=== PATIENT | male | born 1995 | race Caucasian/White ===

== ENCOUNTER 2017-08-31 20:37 | Emergency (ER) | payer OTHER, BC, SELFPAY ==
[2017-08-31 20:37] VITALS: BP 154/88; PULSE 113; RESP 14; TEMP 36.1; BMI 40.8
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
[2017-08-31 21:52] VITALS: PULSE 71; RESP 24
--- NOTE | 2017-08-31 21:52 | ED.RN ---
THIS NURSE REVIEWED D/C INSTRUCTIONS WITH PT. PT VERBALIZED UNDERSTANDING OF INSTRUCTIONS. PT DENIES FURTHER NEEDS OR QUESTIONS AT THIS TIME. PT AMBULATES FROM THE DEPARTMENT ON HIS OWN WITHOUT ASSISTANCE FROM STAFF
== END 2017-08-31 21:53 | disposition home or self-care (01) ==
PROVIDERS: Emergency Provider Emergency Medicine
DX: S06.0X0A Concussion without loss of consciousness, initial encounter (principal); Y04.2XXA Assault by strike against or bumped into by another person, initial encounter; Y93.9 Activity, unspecified; Y92.119 Unspecified place in children's home and orphanage as the place of occurrence of the external cause; Y99.0 Civilian activity done for income or pay
CPT/HCPCS: 99282

== ENCOUNTER 2017-10-07 17:46 | Emergency (ER) | payer OTHER, BC, SELFPAY ==
[2017-10-07 17:47] VITALS: BP 150/83; PULSE 121; RESP 16; TEMP 36.6; O2SAT 96; BMI 39.1
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
[2017-10-07 18:53] VITALS: BP 162/99; PULSE 100; RESP 16; O2SAT 97
== END 2017-10-07 18:55 | disposition home or self-care (01) ==
LOC: ED 18:34
PROVIDERS: Emergency Provider Emergency Medicine
DX: S09.90XA Unspecified injury of head, initial encounter (principal); S50.871A Other superficial bite of right forearm, initial encounter; Y04.1XXA Assault by human bite, initial encounter; Y93.9 Activity, unspecified; Y92.119 Unspecified place in children's home and orphanage as the place of occurrence of the external cause; Y99.0 Civilian activity done for income or pay
CPT/HCPCS: 99283

== ENCOUNTER 2018-03-29 18:18 | Emergency (ER) | payer OTHER, SELFPAY ==
[2018-03-29 18:23] VITALS: BP 159/100; PULSE 95; RESP 18; TEMP 36.7; O2SAT 99; BMI 39.9
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
[2018-03-29 20:15] VITALS: BP 121/79; PULSE 81; RESP 16; O2SAT 100
--- NOTE | 2018-03-29 20:15 | ED.RN ---
THIS NURSE REVIEWED D/C INSTRUCTIONS WITH PT. PT VERBALIZED UNDERSTANDING OF INSTRUCTIONS. PT DENIES FURTHER NEEDS OR QUESTIONS AT THIS TIME. PT AMBULATES FROM ROOM ON OWN WITHOUT ASSISTANCE FROM STAFF
== END 2018-03-29 20:16 | disposition home or self-care (01) ==
PROVIDERS: Emergency Provider Emergency Medicine
DX: S40.011A Contusion of right shoulder, initial encounter (principal); W18.00XA Striking against unspecified object with subsequent fall, initial encounter; Y93.9 Activity, unspecified; Y92.89 Other specified places as the place of occurrence of the external cause; Y99.9 Unspecified external cause status
CPT/HCPCS: 71046; 72040; 73030; 99283

== ENCOUNTER → 2019-02-16 11:04 | Outpatient (CLI) | payer MEDICAID, SELFPAY ==
[2019-02-16 10:55] VITALS: BMI 40.8
--- NOTE | 2019-02-16 11:19 | RAD_ITS ---
STUDY: X-RAY - LEFT ELBOW REASON FOR EXAM: Male, 23 years old. Fall TECHNIQUE: 3 view(s) of the elbow. COMPARISON: None. FINDINGS: There is no evidence of fracture or dislocation. There are no significant degenerative changes. There are no radiodense foreign bodies. RAD/Elbow min 3 Views IMPRESSION: No fracture or dislocation. Electronically Signed: Donavan Lima, at 12:19 EDT Tel , Service support ,
== END ==
PROVIDERS: Visit Provider Physician Assistant Medical
DX: M25.522 Pain in left elbow (principal)
CPT/HCPCS: 73080

== ENCOUNTER → 2019-10-17 09:48 | Outpatient (CLI) | payer MEDICAID, SELFPAY ==
[2019-10-17 09:44] VITALS: BMI 40.8
--- NOTE | 2019-10-17 10:27 | RAD_ITS ---
STUDY: X-RAY - RIGHT HAND REASON FOR EXAM: Male, 24 years old. pain and swelling base of thumb, no trauma TECHNIQUE: 3 view(s) of the hand. COMPARISON: None. FINDINGS: Normal radiocarpal articulation. Normal distal radioulnar joint. Normal visualized carpal bones. Normal carpal articulations Normal carpometacarpal articulation of the thumb. Normal second through fifth carpometacarpal joints. Normal metacarpi. Normal metacarpophalangeal joint of the thumb. Normal interphalangeal joint of the thumb. Normal proximal and distal phalanges of the thumb. Normal metacarpophalangeal joints of the second through fifth fingers. Normal proximal and distal interphalangeal joints of the second through fifth fingers. Normal phalanges of the second through fifth fingers. The soft tissue structures are unremarkable. RAD/Hand Min 3 Views IMPRESSION: Normal x-ray examination of the hand. Electronically Signed: Santos Johnson MD (Bro[place]) at 16:59 EDT , Service support ,
== END ==
PROVIDERS: Referring Provider Orthopaedic Surgery; Visit Provider Orthopaedic Surgery
DX: M79.644 Pain in right finger(s) (principal)
CPT/HCPCS: 73130

== ENCOUNTER 2021-01-15 12:18 | Emergency (ER) | payer OTHER, MEDICAID, SELFPAY ==
[2020-12-21 12:35] VITALS: BMI 40.8
[2021-01-15 12:19] VITALS: BP 150/91; PULSE 91; RESP 16; TEMP 36; O2SAT 96; BMI 47.9
--- NOTE | 2021-01-15 12:40 | CT_ITS ---
STUDY: CT ABDOMEN AND PELVIS WITHOUT CONTRAST REASON FOR EXAM: Male, 25 years old. RLQ pain RADIATION DOSAGE (If Supplied By Facility): CTDIvol = ( 23.97 ) mGy, DLP = ( 1353.40 ) mGycm TECHNIQUE: Transaxial images were obtained from the dome of the diaphragm to the symphysis pubis without oral contrast, and without intravenous contrast. Sagittal and coronal images were reconstructed. Individualized dose optimization techniques were used for this CT. COMPARISON: None. FINDINGS: The visualized lung bases are unremarkable. The visualized portions of the heart are within normal limits. There is decreased attenuation of the liver consistent with steatosis. Normal gallbladder and extrahepatic biliary system. Normal spleen. Normal pancreas. Normal bilateral adrenal glands. 4 mm obstructing stone at the right ureteral pelvic junction with mild hydronephrosis. Normal left kidney. Normal visualized stomach. Normal small intestine. Normal colon. The appendix is visualized and appears normal. Normal abdominal aorta. Normal inferior vena cava. Normal retroperitoneum. Normal urinary bladder. Normal abdominal wall. Normal osseous structures. CT/Abdomen/Pelvis without Cont IMPRESSION: 1. 4 mm obstructing stone at the right ureteropelvic junction with mild hydronephrosis. 2. Fatty infiltration of the liver. Electronically Signed: Dean Donovan MD at 13:48 EDT Tel , Service support ,
--- NOTE | 2021-01-15 12:45 | ED.VIS.GI ---
HPI HPI - GI History of Present Illness Chief Complaint: Abd Pain Abdominal Pain/Flank Pain Onset: Yesterday Narrative Narrative: Presents currently with right lower quadrant pain. Symptoms started yesterday evening 8 PM reported mid abdomen awaking with pain in the right lower quadrant. Nausea and vomiting x2. No hematemesis. Last bowel movement yesterday. No abdominal surgical history. Last meal was yesterday evening. No fevers. No urinary symptoms. History anxiety and depression on medications. States pain is tolerable currently. PFSH PFSH Medical History Anxiety Arthritis Back pain Bloody stool Chest pain Depression Difficulty balancing Fatigue History of knee sprain HTN (hypertension) Limb weakness Seasonal allergies Severe headache Shoulder pain Home Medications bupropion HCl 150 mg PO BID 01/15/21 [History Last Taken Unknown] escitalopram oxalate 10 mg PO DAILY 01/15/21 [History Last Taken Unknown] hydrocodone-acetaminophen 1 tab PO Q6H PRN 3 Days #12 tab 01/15/21 [Rx Last Taken Unknown] ibuprofen 600 mg PO Q6H PRN PRN #20 tab 01/15/21 [Rx Last Taken Unknown] promethazine 25 mg PO Q6H PRN #10 tab 01/15/21 [Rx Last Taken Unknown] Allergy/AdvReac Type Severity Reaction Status Date / Time No Known Allergies Allergy Verified 01/15/21 12:18 Family History Father Colon cancer Diabetes Heart disease Mother Arthritis Son Mosquera mosquera disease Surgical History H/O colonoscopy Hx of endoscopy [place] teeth extracted Social History Smoking Status: Never smoker alcohol intake: never ROS ROS ED Constitutional Constitutional ED: Denies chills, fever(s) or sweats Eyes Eyes: Denies change in vision ENT ENT ED: Denies dysphagia or sore throat Cardiovascular Cardiovascular: Denies chest pain, leg edema, palpitations or racing heartbeat Respiratory/Chest Respiratory/Chest: Denies cough, dyspnea or dyspnea on exertion Gastrointestinal Gastrointestinal: Reports abdominal pain, nausea and vomiting; Denies diarrhea Genitourinary Genitourinary ED: Denies dysuria, hematuria or urinary frequency Musculoskeletal Musculoskeletal: Denies back pain, extremity pain or neck pain Integumentary Denies rash or wounds Neurologic Neurologic: Denies headache(s), paresthesias or weakness EXAM Physical Exam Const Vital Signs: 01/15/21 12:19 01/15/21 14:53 Temperature 96.8 F L Temperature Source Temporal Pulse Rate 91 79 Respiratory Rate 16 16 Blood Pressure 150/91 H 155/78 H Blood Pressure Mean 110 103 Pulse Ox 96 98 Oxygen Delivery Method Room Air Room Air Positive well nourished and well developed General Appearance ED: well developed and NAD HEENT Reports moist mucous membranes normocephalic and atraumatic Eyes PERRL, EOMs intact bilaterally and conjunctivae normal General Eye ED: Yes normal appearance of both eyes Neck no lymphadenopathy and supple General: Negative for tenderness Chest Wall Chest: Negative for tenderness Resp normal respiratory effort and normal air movement Effort and Inspection: symmetric chest movement; Negative for respiratory distress Cardio regular rate, regular rhythm and no murmurs Peripheral Pulses: pulses 2+ throughout GI normal to inspection, nondistended, normoactive bowel sounds GI Narrative: Right lower quadrant tenderness, negative Rovsing's, negative psoas. Palpation: soft; Negative for guarding or rebound tenderness present Back/Spine no CVA tenderness and no thoracic nor lumbar tenderness Extremity normal to inspection General Extremety ED: Negative for edema or tenderness General Extremity: Negative for edema Neuro oriented x3 and no sensory deficits noted Sensorium / Orientation: awake and alert Skin no rashes or lesions noted and no wounds MDM MDM MDM Narrative Medical decision making narrative: Patient nontoxic isolated right lower quadrant tenderness reporting starting in the mid abdominal migrating over. He declined any pain medications. Given Zofran fluids. CT scan to rule out appendicitis was negative for this however did note a 4 mm obstructing stone near the right UVJ. Labs are stable urine was added noted hematuria there was 25 leukocytes however nothing else. Urine culture sent he does not have symptoms. He was given Toradol after findings with improvement of symptoms. Prescriptions for symptom control sent to his pharmacy. Urine strainer for home with urology follow-up. Strict return precautions. All questions were answered. Lab Data Labs: Laboratory Results - last 24 hr 01/15/21 01/15/21 01/15/21 12:30 12:48 12:48 WBC 7.3 RBC 5.46 Hgb 14.7 Hct 46.4 MCV 85.0 MCH 26.9 L MCHC 31.7 L RDW Std Deviation 38.1 RDW Coeff of Phong 12.5 Plt Count 319 MPV 10.8 Immature Gran % (Auto) 0.300 Neut % (Auto) 58.5 Lymph % (Auto) 30.6 [place] % (Auto) 7.8 Eos % (Auto) 2.1 Baso % (Auto) 0.7 Absolute Neuts (auto) 4.3 Absolute Lymphs (auto) 2.24 Nucleated RBC % 0 Sodium 139 Potassium 4.2 Chloride 106 Carbon Dioxide 27.0 Anion Gap 6 BUN 14 Creatinine 1.04 Estim Creat Clear Calc 100.63 Est GFR (MDRD) Af Amer 111 Est GFR (MDRD) Non-Af 92 BUN/Creatinine Ratio 13.5 Glucose 80 Calcium 9.7 Urine Color Yellow Urine Clarity Cloudy Urine pH 6.0 Ur Specific [place] 1.015 Urine Protein 30 H Urine Glucose (UA) Normal Urine Ketones Negative Urine Occult Blood 250 H Urine Nitrite Negative Urine Bilirubin Negative Urine Urobilinogen Normal Ur Leukocyte Esterase 25 H Urine RBC > 100 SEEN Urine WBC 0 SEEN Ur Squamous Epith Cells 0 SEEN Urine Bacteria 0 SEEN Urine Mucus 0 SEEN Radiography Diagnostic Testing: Radiology Impression Abdomen/Pelvis CT 01/15/21 12:40 IMPRESSION: 1. 4 mm obstructing stone at the right ureteropelvic junction with mild hydronephrosis. 2. Fatty infiltration of the liver. Electronically Signed: Dean Donovan MD at 13:48 EDT Tel , Service support , Discharge Plan Triage Chief Complaint: Abd Pain ED Provider: Jose Reeves Dx/Rx/DC Orders Clinical Impression: Urolithiasis, Hematuria, microscopic Instructions: ED Hematuria, ED Kidney Stone w/ Colic Prescriptions: New promethazine 25 mg tablet 25 mg PO Q6H PRN (Reason: nausea or vomiting) Qty: 10 RF: 0 hydrocodone-acetaminophen 5-325 mg tablet 1 tab PO Q6H PRN (Reason: pain) 3 Days Qty: 12 RF: 0 ibuprofen 600 mg tablet 600 mg PO Q6H PRN PRN (Reason: pain) Qty: 20 RF: 0 No Action bupropion HCl 150 mg tablet sustained-release 12 hr 150 mg PO BID RF: 0 escitalopram oxalate 10 mg tablet 10 mg PO DAILY RF: 0 Primary Care Provider: Enrico Soto Referrals: Enrico Soto MD [Primary Care Provider] - Blaise Askew MD [STAFF PHYSICIAN] - 3-5 Days Disposition Disposition: Home, self care
[2021-01-15] MEDS: Ondansetron 4 MG/2 ML Vial IV (12:51)
[2021-01-15] MEDS: 0.9% Normal Saline 1,000 ML 1000 ML IV (12:51)
[2021-01-15 12:55] LABS: Absolute Lymphocyte Count 2.24 X10^3/uL (0.83-4.51); Absolute Neutrophil Count 4.3 X10^3/uL (2.0-7.7); Basophil# 0.05 X10^3/uL; Basophil% 0.7 % (0-1); Eosinophil# 0.15 X10^3/uL; Eosinophils% 2.1 % (0-5); Hematocrit 46.4 % (40-54); Hemoglobin 14.7 g/dL (13.0-16.5); Lymphocyte # 2.24 X10^3/ul (0.83-4.51); Lymphocyte % 30.6 % (19-41); Mean Corp Hgb Conc 31.7 g/dL (32-36); Mean Corpuscular Hgb 26.9 pg (27.0-32.0); Mean Platelet Vol. 10.8 fl (6.2-12.0); Monocyte# 0.57 X10^3/uL; Monocyte% 7.8 % (0-10); NRBC Flagged by Analyzer 0 % (0-5); Neutrophil # 4.28 X10^3/uL (2.7-7.7); Neutrophil % 58.5 % (47-70); Platelet Count 319 K/mm3 (150-450); RBC Distribution Width CV 12.5 % (11.6-14.6); RBC Distribution Width SD 38.1 fl (35.1-43.9); Red Blood Count 5.46 M/mm3 (4.6-6.2); White Blood Count 7.3 K/mm3 (4.4-11.0)
[2021-01-15 13:06] LABS: Anion Gap 6 (5-15); BUN 14 mg/dL (7-18); BUN/Creat Ratio 13.5 RATIO (10-20); Calcium,Total 9.7 mg/dL (8.5-10.1); Chloride 106 mmol/L (98-107); Creatinine, Serum 1.04 mg/dL (0.70-1.30); EST Glomerular Filtration Rate 92 mL/min (>60); Est Glom Filt Rate - Afr Amer 111 mL/min (>60); Estimated Creatinine Clearance 100.63 ml/min; Glucose 80 mg/dL (74-106); Potassium 4.2 mmol/L (3.5-5.1); Sodium Level 139 mmol/L (136-145)
[2021-01-15 14:46] LABS: Bacteria 0 SEEN /hpf (None Seen); Mucous, Urine 0 SEEN /hpf (<or=2+); Squamous Epithelial Cells - UA 0 SEEN /hpf (0-5); White Blood Cells 0 SEEN /hpf (0-5)
[2021-01-15 14:47] LABS: Color, Urine Yellow (Yellow); Glucose, Dipstick Normal (Normal); Ketone-Dipstick Negative (Negative); Leukocyte Esterase-Dipstick 25 /ul (Negative); Nitrite-Dipstick Negative (Negative); Occult Blood-Urine 250 /ul (Negative); Protein-Dipstick 30 mg/dl (Negative); Specific Gravity, Urine 1.015 (1.002-1.030); Urine Bilirubin Dipstick Negative (Negative); Urine Clarity Cloudy (Clear); Urine Urobilinogen Normal (Normal)
[2021-01-15 14:52] LABS: Red Blood Cells-Urine > 100 SEEN /hpf (0-5)
[2021-01-15] MEDS: Ketorolac 15 MG/ML Vial IV (14:52)
[2021-01-15 14:53] VITALS: BP 155/78; PULSE 79; RESP 16; O2SAT 98
== END 2021-01-15 16:11 | disposition home or self-care (01) ==
PROVIDERS: Emergency Provider Emergency Medicine; PCP Family Medicine
DX: N13.2 Hydronephrosis with renal and ureteral calculous obstruction (principal); K76.0 Fatty (change of) liver, not elsewhere classified; I10 Essential (primary) hypertension; F32.9 Major depressive disorder, single episode, unspecified; F41.9 Anxiety disorder, unspecified
CPT/HCPCS: 74176; 80048; 81001; 85025; 87086; 87426; 96361; 96374; 96375; 99283; J7030; A4216; J2405

== ENCOUNTER → 2022-10-27 | Outpatient (CLI) | payer OTHER, MEDICAID, SELFPAY | END | disposition home or self-care (01) | PROVIDERS: PCP Internal Medicine; Visit Provider Internal Medicine | DX: G47.10 Hypersomnia, unspecified (principal); E66.01 Morbid (severe) obesity due to excess calories; R06.83 Snoring | CPT/HCPCS: 95811 ==